=== PATIENT | male | born 1980 | race Caucasian/White ===

== ENCOUNTER → 2022-01-11 06:45 | Outpatient (CLI) | payer OTHER, SELFPAY ==
[2022-01-11 08:32] LABS: Add Manual Diff / Slide Review NO; Basophils Absolute Auto 0 /uL (0-100); Basophils Percent Auto 0.6 % (0-2); Eosinophils Absolute Auto 100 /uL (0-450); Eosinophils Percent Auto 1.3 % (2-4); Hematocrit 39.8 % (41-53); Hemoglobin 13.9 g/dL (13.5-17.5); Lymphocytes Absolute Auto 1400 /uL (1100-4500); Lymphocytes Percent Auto 31.5 % (25-40); Mean Corpuscular Hemoglobin 31.6 PG (26-34); Mean Corpuscular Volume 90.5 fL (80-100); Monocytes Absolute Auto 300 /uL (0-900); Monocytes Percent Auto 7.3 % (3-14); Neutrophils Absolute Auto 2700 /uL (1500-7000); Neutrophils Percent Auto 59.3 % (50-75); Platelet Count 272 X10^3/uL (150-400); Red Blood Cell Count 4.39 X10^6/uL (4.5-5.9); Red Cell Distribution Width 13.5 % (11.6-14.8); White Blood Cell Count 4.5 X10^3/uL (4.5-11.0)
[2022-01-11 09:35] LABS: BUN Creatinine Ratio 18.1 (6-22); Blood Urea Nitrogen 19 mg/dL (9-20); Calcium 9.4 mg/dL (8.4-10.2); Carbon Dioxide 25 mmol/L (22-32); Chloride 106 mmol/L (98-107); Cholesterol 141 mg/dL (140-199); Estimated Glomerular Filt Rate > 60.0 mL/min (>60); Glucose 83 mg/dL (70-100); HDL Cholesterol 62 mg/dL (40-60); HEMOLYSIS < 15 (0-50); LDL Cholesterol Calculated 71 mg/dL (<100); Potassium 4.2 mmol/L (3.4-5.1); Sodium 139 mmol/L (137-145); Triglycerides 39 mg/dL (35-150)
== END ==
PROVIDERS: PCP Family Medicine; Referring Provider Family Medicine; Visit Provider Family Medicine
DX: Z13.220 Encounter for screening for lipoid disorders (principal)
CPT/HCPCS: 36415; 80048; 80061; 85025

== ENCOUNTER → 2022-01-31 07:18 | Outpatient (CLI) | payer OTHER, SELFPAY ==
[2022-01-31 08:04] LABS: COVID19 -Nasal RAPID Negative (Negative)
== END ==
PROVIDERS: Family Provider Family Medicine; PCP Family Medicine; Visit Provider Physician Assistant
DX: Z20.822 Contact with and (suspected) exposure to COVID-19 (principal); J02.9 Acute pharyngitis, unspecified
CPT/HCPCS: 87070; 87635

== ENCOUNTER → 2022-12-15 07:35 | Outpatient (CLI) | payer OTHER, SELFPAY ==
--- NOTE | 2022-12-15 | DI.MRI.S_ITS ---
PROCEDURE: MR LUMBAR SPINE WO CON INDICATIONS: Other low back pain TECHNIQUE: Noncontrast sagittal T1 spin echo and T2 fast echo, sagittal STIR, and T2 fast spin echo through the lumbar spine. In cases with scoliosis, additional coronal T2 fast spin echo may be performed. COMPARISON: None. FINDINGS: Image quality: Excellent. Alignment and Curvature: There is normal bony alignment. Bone Marrow: Marrow is of normal overall signal. No acute vertebral body compression fractures. Spinal Cord: Conus medullaris terminates at the L1-L2 level. Visualized cord demonstrates normal signal and size. Paraspinous Soft Tissues: No paravertebral masses. T12-L1: Normal appearance. L1-L2: Normal appearance. L2-L3: Normal appearance. L3-L4: Normal appearance. L4-L5: Mild disc bulge. Mild facet hypertrophy. No significant canal stenosis. No significant foraminal stenosis. L5-S1: A broad-based left posterior disc protrusion impinges on the left S1 nerve root in the left lateral recess. There is facet hypertrophy. There is no significant foraminal stenosis. IMPRESSION: 1. At L5-S1 there is a broad-based left posterior disc protrusion impinging on the left S1 nerve root in the left lateral recess. This would result in left sciatica. 2. Mild lower lumbar facet hypertrophy. Dictated by: Khris Mojica M.D. on 12/15/2022 at 8:36 Approved by: Khris Mojica M.D. on 12/15/2022 at 8:39
== END ==
PROVIDERS: Family Provider Family Medicine; PCP Family Medicine; Referring Provider Physical Medicine & Rehabilitation; Visit Provider Physical Medicine & Rehabilitation
DX: M51.27 Other intervertebral disc displacement, lumbosacral region (principal)
CPT/HCPCS: 72148

== ENCOUNTER → 2023-01-06 10:49 | Outpatient (CLI) | payer OTHER, SELFPAY ==
--- NOTE | 2023-01-06 | DI.MRI.S_ITS ---
PROCEDURE: MR KNEE LT WO CON INDICATIONS: Derangement of unspecified medial meniscus TECHNIQUE: Noncontrast sagittal PD fast spin echo and T2 fast spin echo with fat saturation, sagittal 3-D FLASH with fat saturation; coronal T1 spin echo and PD fast spin echo with fat saturation, and axial PD fast spin echo with fat saturation through the knee. COMPARISON: [facility], CR, XR KNEE 4+ VIEWS LEFT, 12/26/2022, 16:32. FINDINGS: Image quality: Excellent. Anterior Cruciate Ligament: There is chronic high-grade versus complete tearing of the anterior cruciate ligament. The torn tendon fibers appear to be displaced inferiorly. There is mild anterior translation of the tibial plateau relative to the distal femur. Posterior Cruciate Ligament: Intact. Medial Collateral Ligament: Mild thickening of the proximal medial collateral ligament is most likely secondary to a remote prior low-grade sprain. Lateral Collateral Ligament: Intact. Medial Meniscus: There is peripheral horizontal oblique tearing of the posterior horn of the medial meniscus extending to the outer third of the tibial articular surface. Lateral Meniscus: There is a shallow radial tear at the junction of the anterior horn and body of the lateral meniscus. Medial and Lateral Tendons: The semimembranosus tendon insertions and meniscocapsular junction appear intact. Visualized portions of the pes anserinus tendons appear normal. No abnormal bursal fluid. The long and short heads of the biceps femoris tendon appear intact. The popliteus tendon appears intact. No signs of posterolateral corner injury. Iliotibial band appears normal. Anterior Structures: The quadriceps and patellar tendons appear intact. No patellar subluxation. No femoral trochlear dysplasia or ventral trochlear prominence. No edema in the infrapatellar fat pad. Bones: No acute trabecular bone injury or fracture. Medial Femorotibial Cartilage: Focal deep cartilage fissuring is seen in the weight-bearing portion of the medial femoral condyle. Lateral Femorotibial Cartilage: No focal cartilage defect. Partial-thickness cartilage irregularity is seen at the far posterior portion of the lateral femoral condyle. Patellofemoral Cartilage: There are foci of high-grade and likely full-thickness cartilage loss at the lateral femoral trochlea and at the trochlear groove. Shallow cartilage fissuring is seen at the median ridge and medial facet of patella. Soft Tissues: A moderate joint effusion is present. There is a trace medial popliteal cyst. A small amount nonspecific prepatellar subcutaneous soft tissue edema or small prepatellar bursal effusion are present. The musculature surrounding the knee is normal in bulk. IMPRESSION: 1. 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 2. Chronic grade 1 sprain of the proximal medial collateral ligament. 3. Peripheral horizontal oblique tear of the medial meniscus at the posterior horn extending to the outer third of the tibial articular surface. 4. Shallow radial tear at the junction of the anterior horn and body of the lateral meniscus. 5. Foci of grade 3-4 chondromalacia in the anterior compartment. There is focal deep cartilage fissuring in the medial compartment and mild grade 2 chondromalacia in the lateral compartment. 6. Moderate joint effusion. Mild prepatellar subcutaneous edema or trace bursal effusion. Approved by: Kory Burnett M.D. on 01/08/2023 at 8:44
== END ==
PROVIDERS: Family Provider Family Medicine; PCP Family Medicine; Referring Provider Orthopaedic Surgery Foot and Ankle Surgery; Visit Provider Orthopaedic Surgery Foot and Ankle Surgery
DX: S83.512A Sprain of anterior cruciate ligament of left knee, initial encounter (principal); S83.412A Sprain of medial collateral ligament of left knee, initial encounter; S83.222A Peripheral tear of medial meniscus, current injury, left knee, initial encounter; S83.282A Other tear of lateral meniscus, current injury, left knee, initial encounter; M94.262 Chondromalacia, left knee; M25.462 Effusion, left knee
CPT/HCPCS: 73721

== ENCOUNTER 2024-08-09 11:20 | Emergency (ER) | payer OTHER, SELFPAY ==
[2024-08-09 11:27] VITALS: BP 133/80; PULSE 107; RESP 16; TEMP 36.5; O2SAT 96; BMI 24.3
== END 2024-08-09 13:54 | disposition left against medical advice (07) ==
PROVIDERS: Emergency Provider Emergency Medicine; Family Provider Family Medicine; PCP Family Medicine
DX: H53.9 Unspecified visual disturbance (principal)
CPT/HCPCS: 99281

== ENCOUNTER → 2025-03-18 17:18 | Outpatient (CLI) | payer OTHER, SELFPAY ==
--- NOTE | 2025-03-18 17:19 | DI.MRI.S_ITS ---
PROCEDURE: MR LUMBAR SPINE WO CON INDICATIONS: Lumbar radiculopathy. TECHNIQUE: Noncontrast sagittal T1 spin echo and T2 fast echo, sagittal STIR, and T2 fast spin echo through the lumbar spine. In cases with scoliosis, additional coronal T2 fast spin echo may be performed. COMPARISON: [facility], CR, XR LUMBAR SPINE WITH FLEXION EXTENSION 5 VIEWS, 02/24/2025, 15:36. [facility], , MR LUMBAR SPINE WO CON, 12/15/2022, 7:48. FINDINGS: Image quality: Excellent. Alignment and Curvature: Loss of normal lumbar lordosis. 5 lumbar type vertebral bodies present by plain film. 4 mm of retrolisthesis of L5 on S1. 2 mm of retrolisthesis of L3 on L4. Bone Marrow: Marrow is of normal overall signal. No acute vertebral body compression fractures. Spinal Cord: Conus medullaris terminates at the L1-L2 disc space level. Visualized cord demonstrates normal signal and size. Paraspinous Soft Tissues: No paravertebral masses. T12-L1: Normal appearance. L1-L2: Mild disc desiccation and diffuse disc bulge. Mild canal stenosis. Mild bilateral foraminal stenosis. No significant change. L2-L3: Normal appearance. L3-L4: Mild facet and ligamentum flavum hypertrophy. Mild epidural lipomatosis. Mild canal stenosis. Mild bilateral foraminal stenosis. No significant change. L4-L5: Mild facet and ligamentum flavum hypertrophy. Mild epidural lipomatosis. Mild diffuse disc bulge. Mild canal stenosis. Mild bilateral foraminal stenosis. No significant change. L5-S1: Mild disc height loss and desiccation. Mild diffuse disc bulge with superimposed left posterolateral protrusion. Mild bilateral facet hypertrophy. Mild canal stenosis. Moderate left and mild right foraminal stenosis. Compression and posterior deviation of the left S1 nerve root within the lateral recess, as before. IMPRESSION: 1. Multilevel degenerative disc and facet disease, as well as ligamentum flavum hypertrophy and epidural lipomatosis. 2. Mild multilevel canal stenoses. 3. Multilevel mild to moderate foraminal stenosis. 4. Stable compression and posterior deviation of the left S1 nerve root at the L5-S1 disc space level. Recommend correlation with clinical symptoms to ascertain relevance of this finding. Dictated by: Yaneth Pastor M.D. on 03/19/2025 at 11:55 Approved by: Yaneth Pastor M.D. on 03/19/2025 at 11:58
== END ==
PROVIDERS: Family Provider Family Medicine; PCP Family Medicine; Referring Provider Family Medicine; Visit Provider Physician Assistant Surgical
DX: M47.816 Spondylosis without myelopathy or radiculopathy, lumbar region (principal); M47.27 Other spondylosis with radiculopathy, lumbosacral region; M48.061 Spinal stenosis, lumbar region without neurogenic claudication; M48.07 Spinal stenosis, lumbosacral region; M51.17 Intervertebral disc disorders with radiculopathy, lumbosacral region; M51.369 Other intervertebral disc degeneration, lumbar region without mention of lumbar back pain or lower extremity pain; E88.2 Lipomatosis, not elsewhere classified
CPT/HCPCS: 72148